=== PATIENT | female | born 1990 | race Caucasian/White ===

== ENCOUNTER 2024-08-02 22:48 | Inpatient (IN) | payer BC, SELFPAY ==
[2024-08-02 16:10] VITALS: BP 113/87
[2024-08-02 16:23] VITALS: BP 134/81
--- NOTE | 2024-08-02 16:26 | ED.GENMED ---
History of Present Illness
<Cee Billy GIS ENGINEER - Last Filed: 08/02/24 23:48>
General
Chief Complaint: Breathing Problem
Source: patient
Exam Limitations: none
Time Seen by Provider: 08/02/24 16:17
Nursing documentation reviewed up to this point in time: agreed with
History of Present Illness
History of Present Illness:
34 yo female here for episode of heart beating fast and SOB. She is 9 weeks via IVF, . Taking Estrogen and Progesterone. [facility]. States she woke this 8 a.m. with left calf 'soreness.' Still with some
soreness. 11:30 this a.m. had sudden onset 'my heart was racing' for about a minute, felt faint, blurry vision for 30 seconds in right eye, felt SOB, went back into the restaurant,sat and it took her 10 minutes to recover. Had no chest pain. Went on
to her next appointment.
She flew to [place] and back 07/24 and 07/28
Past History
<Cee Billy, GIS ENGINEER - Last Filed: 08/02/24 23:48>
Past History
ED Past Medical History: None
ED Past Surgical History: None
Social History
Tobacco: Non-smoker
Alcohol: None
Personal:
Living: with family
Employment: Employed
Review of Systems
<Cee Billy, GIS ENGINEER - Last Filed: 08/02/24 23:48>
Review of Systems
Allergies reviewed?: Yes
All Other Systems: ROS reviewed and negative except as documented in HPI and ROS
Constitutional: Denies fever
Respiratory: Reports trouble breathing (feels SOB with talking); Denies cough
Cardiac: Reports palpitations; Denies chest pain, diaphoresis or syncope
ABD/GI: Denies abdominal pain, nausea, vomiting or diarrhea
: Denies dysuria, frequency or difficulty voiding
Musculoskeletal: Reports no symptoms
Skin: Reports no symptoms
Neurological: Reports no symptoms
Phy Exam
<Cee Billy, GIS ENGINEER - Last Filed: 08/02/24 23:48>
Physical Exam
Physical Exam:
GENERAL: No acute distress. A&Ox3.
CONSTITUTIONAL: Afebrile.
EYES: clear, conjunctivae normal
ENMT: moist mucus membranes, Pharynx nl
RESPIRATORY: Regular respirations, nonlabored, lungs clear. Pulse ox 94-98% RA
CARDIOVASCULAR: Regular rate and rhythm, no murmurs, no rubs.
GI: Soft, nontender, normal BS
MUSCULOSKELETAL: Moves with ease. Well perfused.
SKIN: Warm, dry, pink
PSYCH: Normal mood and affect. Well kept, interactive and appropriate
NEUROLOGIC: Awake, alert and oriented. No focal neurological deficits
Sepsis
<Cee Billy, GIS ENGINEER - Last Filed: 08/02/24 23:48>
Sepsis Screening
Sepsis Assessment: Sepsis Ruled Out
Sepsis Screen
Sepsis Screen: Sepsis Ruled Out
Date: 08/02/24
Time: 23:48
Course
<Cee Billy, GIS ENGINEER - Last Filed: 08/02/24 23:48>
Orders/Labs/Results
Orders:
Orders
08/02/24 Dinner
Regular
At Your Request: Full Participation
08/02/24 16:26
US Periph Venous LOWER Ext LT Urgent
Comment:
Reason For Exam: soreness, SOB, 7 wks preg
08/02/24 16:37
Complete Blood Count/With Diff Urgent
Comprehensive Metabolic Panel Urgent
D-Dimer Urgent
PTT Urgent
Comment: ADD ON
08/02/24 18:21
CT Chest PE Study Urgent
Comment:
Reason For Exam: 9 wks preg, elevated dimer, SOB
08/02/24 20:01
Heparin 4,800 units IV NOW STA
Nursing to Place Non Medication Order As Directed
Physician Order: PTT 6 hours after initial start of Heparin infusion
Above order entered?: Yes
08/02/24 20:02
Add On- LAB Stat
Tests Added?: PTT
08/02/24 20:10
Heparin 4,800 units IV PRN PRN
Heparin 51364 Units/250 ml 25,000 units in 250 ml .ROUTE .STK-MED
08/02/24 20:11
Heparin 2,400 units IV PRN PRN
08/02/24 20:15
Heparin 82594 Units/250 ml 25,000 units in 250 ml IV PER PROTOCOL
Weight to be used for heparin protocol in kilograms (kg):: 59.9
Protocol:: DVT/PE
PTT Goal Range to be used:: PTT 73 to 111 seconds
Order type:: Initial
INITIAL Infusion Dose (UNITS/KG/hr) & then follow protocol:: 18 units/kg/hr
Infusion Dose in UNITS/hr & then follow protocol (UNITS/hr):: 1,100
INFUSION RATE in mL/hr & then follow protocol (mL/hr):: 11
For DVT/PE algorithm, re-bolus for low PTT?: Yes
PTT less than or equal to 64 seconds:: Re-bolus 80 units/kg (max 10,000units). Increase by 200 units/hr
(+ 2mL/hr)
PTT 64.1 to 72.9 seconds:: Re-bolus 40 units/kg (max 5,000 units). Increase by 100 units/hr
(+ 1mL/hr)
PTT 73 to 111 seconds:: Target Range. No change in rate.
PTT 111.1 to 130.9 seconds:: Decrease rate by 100 units/hr (- 1 mL/hr)
PTT 131 to 199.9 seconds:: HOLD for 1 hr. Then decrease by 200 units/hr (- 2mL/hr)
PTT greater than or equal to 200 seconds:: HOLD for 2 hrs & Notify Provider. Then decrease by 200 units/hr
(- 2mL/hr)
Lab follow-up:: Each change, PTT q6h until 2 consecutive are therapeutic. Then
PTT daily.
08/02/24 22:18
Admit/Transfer Patient As Directed
Co-Sign Provider:
Level of Care: Inpatient admission
Assign to:: IMU- Intermediate Care
Physician / Group: hospitalist
Diagnosis: pulmonary embolus
Reason for Hospitalization: Large saddle pulmonary embolus
Expected length of stay greater than two midnights?: Yes
ELOS- Estimated Length of Stay in days: 2
I certify the patient meets the requirements for IP care: Yes
08/02/24 22:19
Code Status As Directed
Resuscitation Status: Full Code
08/02/24 23:32
Acetaminophen [Tylenol] 650 mg PO Q4HPRN PRN
HYDROmorphone [Dilaudid] 0.5 mg IV Q4HPRN PRN
Ondansetron Injectable [Zofran] 4 mg IV Q6HPRN PRN
08/02/24 23:32
Admit Patient As Directed
Co-Sign Provider:
Level of Care: Inpatient admission
Assign to:: IMU- Intermediate Care
Physician / Group: hospitalist
Diagnosis: pulmonary embolism
Reason for Hospitalization: pulmonary embolism
Expected length of stay greater than two midnights?: Yes
ELOS- Estimated Length of Stay in days: 2
I certify the patient meets the requirements for IP care: Yes
Echo 2D MMode Color/Doppler Routine
Reason for Study: pulmonary embolism
Electrocardiogram (*1) Routine
Reason for Study: Other
Other Reason for Exam: pulmonary embolism
Software Packager Consult Routine
Consulting Provider: Mike Rasmussen
Was physician already notified: Yes
Reason for consult: saddle embolus
Heparin Protocol- PTT Orders As Directed
PTT per Heparin protocol: -Obtain CBC and baseline PTT - if not already collected.
-Obtain PTT 6 hours from start of infusion. Then, every 6 hours until 2 consecutive
PTT's are therapeutic. Then, PTT Daily.
-With each rate change, obtain PTT every 6 hours until 2 consecutive PTT's are
therapeutic. Then, PTT Daily.
Activity As Directed
Activity Level: With Assistance
Bladder Scan As Directed
Follow Bladder Retention/Intermittent Cath Algorithm?: Yes
Frequency: Per Retention Algorithm
Comment: as per intermittent urinary catheter algorithm
Bladder Scan As Directed
Follow Bladder Retention/Intermittent Cath Algorithm?: Yes
PRN if no void in __ hours: 6
Frequency: Per Retention Algorithm
If Bladder Scan Result >: 400
then:: Straight cath
Intake/ Output As Directed
Frequency: Per unit guidelines
Notify MD As Directed
Notify physician if: PTT is greater than or equal to 200.
Straight Cath As Directed
Frequency: Per Retention Algorithm
Additional Instructions: as per intermittent urinary catheter algorithm
Straight Cath As Directed
Frequency: Per Retention Algorithm
Additional Instructions: straight cath as needed per acute urinary retention algorithm for 24 hrs
Additional Instructions: for bladder scan greater than 400 mL
Vital Signs As Directed
Frequency: Per unit guidelines
PRN Pain Medication Management As Directed
May give lesser potent ordered pain med per pt: Yes
preference::
Protocol:: Medication orders for pain may be administered in a
manner that supports deferring to patient preference
when the pt is:
- Requesting an ordered lesser potent pain medication.
Least to most potent pain medications are defined
as: acetaminophen < NSAID < tramadol < opioids
(morphine, oxycodone, hydromorphone).
- Requesting a lesser dose of the same medication IF
ORDERED.
- Requesting a less intrusive route of administration
if both routes are prescribed by the provider (PO <
IV).
Pulse Ox/cont/shift [RESP] Routine
Quantity: 1
Special Instructions: check O2 Sat Q8 hours and at each change in oxygen liter flow and FiO2
08/03/24 02:20
PTT Urgent
08/03/24 06:00
Complete Blood Count/No Diff IN AM
Glycohemoglobin (HgbA1c) IN AM
Troponin I IN AM
08/03/24 08:00
Polyethylene Glycol Powder [Miralax] 17 grams PO DAILY
08/04/24 06:00
Complete Blood Count/No Diff Q2D
Comment: notify provider: Platelet count < 130,000 or decrease by 50% from baseline
08/06/24 06:00
Complete Blood Count/No Diff Q2D
Comment: notify provider: Platelet count < 130,000 or decrease by 50% from baseline
08/08/24 06:00
Complete Blood Count/No Diff Q2D
Comment: notify provider: Platelet count < 130,000 or decrease by 50% from baseline
08/10/24 06:00
Complete Blood Count/No Diff Q2D
Comment: notify provider: Platelet count < 130,000 or decrease by 50% from baseline
08/12/24 06:00
Complete Blood Count/No Diff Q2D
Comment: notify provider: Platelet count < 130,000 or decrease by 50% from baseline
08/14/24 06:00
Complete Blood Count/No Diff Q2D
Comment: notify provider: Platelet count < 130,000 or decrease by 50% from baseline
08/16/24 06:00
Complete Blood Count/No Diff Q2D
Comment: notify provider: Platelet count < 130,000 or decrease by 50% from baseline
08/18/24 06:00
Complete Blood Count/No Diff Q2D
Comment: notify provider: Platelet count < 130,000 or decrease by 50% from baseline
Abnormal Lab Results
08/02/24
16:37
Hct 36.6 L %
(37.0-47.0)
Absolute Neuts (auto) 6.7 H 10^3/uL
(1.4-6.5)
D-Dimer 5.03 H ug/mlFEU
(0.00-0.50)
Sodium 134 L mmol/L
(135-145)
08/02/24 16:37
08/02/24 16:37
Vital Signs
Initial and Last Documented VS:
Initial Vital Signs
Temp Pulse Resp BP Pulse Ox
98.3 F 102 21 113/87 94
08/02/24 16:10 08/02/24 16:10 08/02/24 16:10 08/02/24 16:10 08/02/24 16:10
Last Documented Vital Signs
Temp Pulse Resp BP Pulse Ox
98.3 F 89 16 117/77 99
08/02/24 16:10 08/02/24 23:00 08/02/24 23:00 08/02/24 23:00 08/02/24 23:00
<Amol Olivier, DO - Last Filed: 08/02/24 20:17>
Orders/Labs/Results
Orders:
Orders
08/02/24 Dinner
Regular
At Your Request: Full Participation
08/02/24 16:26
US Periph Venous LOWER Ext LT Urgent
Comment:
Reason For Exam: soreness, SOB, 7 wks preg
08/02/24 16:37
Complete Blood Count/With Diff Urgent
Comprehensive Metabolic Panel Urgent
D-Dimer Urgent
PTT Urgent
Comment: ADD ON
08/02/24 18:21
CT Chest PE Study Urgent
Comment:
Reason For Exam: 9 wks preg, elevated dimer, SOB
08/02/24 20:01
Heparin 4,800 units IV NOW STA
Nursing to Place Non Medication Order As Directed
Physician Order: PTT 6 hours after initial start of Heparin infusion
Above order entered?: Yes
08/02/24 20:02
Add On- LAB Stat
Tests Added?: PTT
08/02/24 20:10
Heparin 4,800 units IV PRN PRN
Heparin 51507 Units/250 ml 25,000 units in 250 ml .ROUTE .STK-MED
08/02/24 20:11
Heparin 2,400 units IV PRN PRN
08/02/24 20:15
Heparin 19330 Units/250 ml 25,000 units in 250 ml IV PER PROTOCOL
Weight to be used for heparin protocol in kilograms (kg):: 59.9
Protocol:: DVT/PE
PTT Goal Range to be used:: PTT 73 to 111 seconds
Order type:: Initial
INITIAL Infusion Dose (UNITS/KG/hr) & then follow protocol:: 18 units/kg/hr
Infusion Dose in UNITS/hr & then follow protocol (UNITS/hr):: 1,100
INFUSION RATE in mL/hr & then follow protocol (mL/hr):: 11
For DVT/PE algorithm, re-bolus for low PTT?: Yes
PTT less than or equal to 64 seconds:: Re-bolus 80 units/kg (max 10,000units). Increase by 200 units/hr
(+ 2mL/hr)
PTT 64.1 to 72.9 seconds:: Re-bolus 40 units/kg (max 5,000 units). Increase by 100 units/hr
(+ 1mL/hr)
PTT 73 to 111 seconds:: Target Range. No change in rate.
PTT 111.1 to 130.9 seconds:: Decrease rate by 100 units/hr (- 1 mL/hr)
PTT 131 to 199.9 seconds:: HOLD for 1 hr. Then decrease by 200 units/hr (- 2mL/hr)
PTT greater than or equal to 200 seconds:: HOLD for 2 hrs & Notify Provider. Then decrease by 200 units/hr
(- 2mL/hr)
Lab follow-up:: Each change, PTT q6h until 2 consecutive are therapeutic. Then
PTT daily.
08/02/24 22:18
Admit/Transfer Patient As Directed
Co-Sign Provider:
Level of Care: Inpatient admission
Assign to:: IMU- Intermediate Care
Physician / Group: hospitalist
Diagnosis: pulmonary embolus
Reason for Hospitalization: Large saddle pulmonary embolus
Expected length of stay greater than two midnights?: Yes
ELOS- Estimated Length of Stay in days: 2
I certify the patient meets the requirements for IP care: Yes
08/02/24 22:19
Code Status As Directed
Resuscitation Status: Full Code
08/02/24 23:32
Acetaminophen [Tylenol] 650 mg PO Q4HPRN PRN
HYDROmorphone [Dilaudid] 0.5 mg IV Q4HPRN PRN
Ondansetron Injectable [Zofran] 4 mg IV Q6HPRN PRN
08/02/24 23:32
Admit Patient As Directed
Co-Sign Provider:
Level of Care: Inpatient admission
Assign to:: IMU- Intermediate Care
Physician / Group: hospitalist
Diagnosis: pulmonary embolism
Reason for Hospitalization: pulmonary embolism
Expected length of stay greater than two midnights?: Yes
ELOS- Estimated Length of Stay in days: 2
I certify the patient meets the requirements for IP care: Yes
Echo 2D MMode Color/Doppler Routine
Reason for Study: pulmonary embolism
Electrocardiogram (*1) Routine
Reason for Study: Other
Other Reason for Exam: pulmonary embolism
Software Packager Consult Routine
Consulting Provider: Mike Rasmussen
Was physician already notified: Yes
Reason for consult: saddle embolus
Heparin Protocol- PTT Orders As Directed
PTT per Heparin protocol: -Obtain CBC and baseline PTT - if not already collected.
-Obtain PTT 6 hours from start of infusion. Then, every 6 hours until 2 consecutive
PTT's are therapeutic. Then, PTT Daily.
-With each rate change, obtain PTT every 6 hours until 2 consecutive PTT's are
therapeutic. Then, PTT Daily.
Activity As Directed
Activity Level: With Assistance
Bladder Scan As Directed
Follow Bladder Retention/Intermittent Cath Algorithm?: Yes
Frequency: Per Retention Algorithm
Comment: as per intermittent urinary catheter algorithm
Bladder Scan As Directed
Follow Bladder Retention/Intermittent Cath Algorithm?: Yes
PRN if no void in __ hours: 6
Frequency: Per Retention Algorithm
If Bladder Scan Result >: 400
then:: Straight cath
Intake/ Output As Directed
Frequency: Per unit guidelines
Notify MD As Directed
Notify physician if: PTT is greater than or equal to 200.
Straight Cath As Directed
Frequency: Per Retention Algorithm
Additional Instructions: as per intermittent urinary catheter algorithm
Straight Cath As Directed
Frequency: Per Retention Algorithm
Additional Instructions: straight cath as needed per acute urinary retention algorithm for 24 hrs
Additional Instructions: for bladder scan greater than 400 mL
Vital Signs As Directed
Frequency: Per unit guidelines
PRN Pain Medication Management As Directed
May give lesser potent ordered pain med per pt: Yes
preference::
Protocol:: Medication orders for pain may be administered in a
manner that supports deferring to patient preference
when the pt is:
- Requesting an ordered lesser potent pain medication.
Least to most potent pain medications are defined
as: acetaminophen < NSAID < tramadol < opioids
(morphine, oxycodone, hydromorphone).
- Requesting a lesser dose of the same medication IF
ORDERED.
- Requesting a less intrusive route of administration
if both routes are prescribed by the provider (PO <
IV).
Pulse Ox/cont/shift [RESP] Routine
Quantity: 1
Special Instructions: check O2 Sat Q8 hours and at each change in oxygen liter flow and FiO2
08/03/24 02:20
PTT Urgent
08/03/24 06:00
Complete Blood Count/No Diff IN AM
Glycohemoglobin (HgbA1c) IN AM
Troponin I IN AM
08/03/24 08:00
Polyethylene Glycol Powder [Miralax] 17 grams PO DAILY
08/04/24 06:00
Complete Blood Count/No Diff Q2D
Comment: notify provider: Platelet count < 130,000 or decrease by 50% from baseline
08/06/24 06:00
Complete Blood Count/No Diff Q2D
Comment: notify provider: Platelet count < 130,000 or decrease by 50% from baseline
08/08/24 06:00
Complete Blood Count/No Diff Q2D
Comment: notify provider: Platelet count < 130,000 or decrease by 50% from baseline
08/10/24 06:00
Complete Blood Count/No Diff Q2D
Comment: notify provider: Platelet count < 130,000 or decrease by 50% from baseline
08/12/24 06:00
Complete Blood Count/No Diff Q2D
Comment: notify provider: Platelet count < 130,000 or decrease by 50% from baseline
08/14/24 06:00
Complete Blood Count/No Diff Q2D
Comment: notify provider: Platelet count < 130,000 or decrease by 50% from baseline
08/16/24 06:00
Complete Blood Count/No Diff Q2D
Comment: notify provider: Platelet count < 130,000 or decrease by 50% from baseline
08/18/24 06:00
Complete Blood Count/No Diff Q2D
Comment: notify provider: Platelet count < 130,000 or decrease by 50% from baseline
Abnormal Lab Results
08/02/24
16:37
Hct 36.6 L %
(37.0-47.0)
Absolute Neuts (auto) 6.7 H 10^3/uL
(1.4-6.5)
D-Dimer 5.03 H ug/mlFEU
(0.00-0.50)
Sodium 134 L mmol/L
(135-145)
08/02/24 16:37
08/02/24 16:37
Vital Signs
Initial and Last Documented VS:
Initial Vital Signs
Temp Pulse Resp BP Pulse Ox
98.3 F 102 21 113/87 94
08/02/24 16:10 08/02/24 16:10 08/02/24 16:10 08/02/24 16:10 08/02/24 16:10
Last Documented Vital Signs
Temp Pulse Resp BP Pulse Ox
98.3 F 89 16 117/77 99
08/02/24 16:10 08/02/24 23:00 08/02/24 23:00 08/02/24 23:00 08/02/24 23:00
<Cee Billy GIS ENGINEER - Last Filed: 08/02/24 23:48>
MDM/Problems Addressed
Differential Diagnosis Includes:
PE
MDM/Problems Addressed:
34 yo female here for episode of heart beating fast and SOB. She is 9 weeks via IVF, . Taking Estrogen and Progesterone. Followed by Fawad Gonzalez [employer] OPER[employer]. States she woke this 8 a.m. with left calf 'soreness.' Still with some
soreness. 11:30 this a.m. had sudden onset 'my heart was racing' for about a minute, felt faint, blurry vision for 30 seconds in right eye, felt SOB, went back into the restaurant,sat and it took her 10 minutes to recover. Had no chest pain. Went on
to her next appointment.
She flew to [place] and back 07/24 and 07/28
CBC normal
CMP CMP normal
D dimer 5.03
US LLE neg for DVT
Results discussed with patient and at bedside. Chest CT PE study ordered
Discussed risk vs benefit with pt and , Dr. Olivier, all in agreement to do CT scan at 9 weeks .
UpToDate: Dose threshold�and potential consequences�� Ionizing radiation studies typically expose the fetus to <50 mGy (0.05 Gy, 5 rads) (table
[email or web address]?imageKey=[email or web address]&topicKey=OBGYN%[email or web address]&search=Chest%20ct%20in%20early%20pregnancy&rank=2%[email or web address]&source=see_link), and there is�no�evidence of an increased risk of anomalies, intellectual
disability, growth restriction, or ?r?g???c? loss from ionizing radiation at this dose level; there may be a small increased risk of childhood cancer.
7:50 p.m.
Saddle embolus, mild R heart strain
Pt states she is feeling much better since arrival
[facility]
PERT Alert called. Dr. Olivier spoke with OB and Pulmonology Dr. Hua
Pt on Estrogen and Progesterone with multiple PE's, saddle embolus, OB Dr. Lees who has nothing to do at this point. We will consult with pt Fertility Dr. Carmen re continuing hormones (or not).
Plan: Heparin
8:15 p.m.
Hospitalist notified of admission.
<Cee Billy NP - Last Filed: 08/02/24 23:48>
*Critical Care Note
Total Time (30-74mins, 75-104mins- exclusive of procedures): Not Applicable
ED Attending Note
<Cee Billy, GIS ENGINEER - Last Filed: 08/02/24 23:48>
-
Portions of this chart may have been created with voice recognition software.� Occasional wrong word or��sound alike� substitutions may have occurred due to the inherent limitations of voice recognition software.
<Amol Olivier DO - Last Filed: 08/02/24 20:17>
ED Attending Note
I performed the substantive portion of visit, reviewed & personally made and approve the management plan that is documented in note by myself or YAZAN.: Yes
ED Attending Note:
I agree with Lucretia's note
Patient presents with sudden onset of shortness of breath, rapid heart rate and near syncopal feeling. Feeling significantly better now.
General: Awake, Alert, Oriented X3. No acute distress.
Vitals: unremarkable
Head: Atraumatic
Eyes: Pupils equal, EOMI
Throat: Airway intact, no exudates
Neck: Trachea midline
Lungs: Clear and equal b/l
Heart: Regular rate, no murmurs
Abd: Soft, Nontender, No pulsatile mass
Neuro: Nonfocal
Skin: Warm, dry, no rash
Extremities: pulses equal b/l, no edema
Patient presents with chest pain, near syncope and shortness of breath. PE study shows moderate clot burden with a thin saddle embolus component. Case discussed with Dr. Wilkins, who feels patient is not a candidate for intervention. Agrees with
heparin. I did discuss the patient's presentation with Dr. Lees who is on-call for [employer] OPER[employer]. She does not have much to add at this point as it is a nonviable . Will asked the patient to contact her fertility doctor so we can discuss
whether or not to continue her oral hormone supplements.
Critical care time 35 minutes
Critical care statement: A total of 35 minutes of critical care time was provided for this patient. This includes management of unstable vital signs, evaluation of the patient at bedside, reviewing the patient's pertinent medical records, discussion
with consultants, review of old EKGs and review of pertinent medical records. This time with separate from time utilized to perform the aforementioned documented procedures
Discharge Plan
Departure
Patient Disposition: Admit
Date of Disposition: 08/02/24
Time of Disposition: 20:18
Admit to: IMU
Presentation/result/management discussed w/ accepting MD/DO: Hospitalist
Condition: Fair
Discharge Problem:
Multiple pulmonary emboli, Acute saddle pulmonary embolism
Interventions
Interventions:
*Risk Screen - Suicide Last Done: 08/02/24 16:10
*General Assessment Last Done: 08/02/24 16:34
*Neglect/Abuse Screening Last Done: 08/02/24 16:10
*ED COVID-19 Vaccine History Last Done: 08/02/24 16:34
ED- Cardiac Assessment Last Done: 08/02/24 16:34
ED- Pulmonary Assessment Last Done: 08/02/24 16:34
[2024-08-02 16:49] LABS: % Basophils 0.3 % (0-2); % Eosinophils 2.1 % (0-6); % Immature Granulocytes 0.4 % (0-0.5); % Lymphocytes 24.4 % (20.5-51.1); % Neutrophils 66.8 % (42.2-75.2); Absolute Eosinophils 0.2 10^3/uL (0-0.7); Absolute Lymphocytes 2.4 10^3/uL (1.2-3.4); Absolute Monocytes 0.6 10^3/uL (0.1-0.6); Absolute Neutrophils 6.7 10^3/uL (1.4-6.5); Hematocrit 36.6 % (37.0-47.0); Mean Corp Hgb Conc. 35.5 g/dL (33.0-37.0); Mean Corpuscular Volume 84.3 fL (81.0-99.0); Nucleated Red Blood Cells % 0 %; Platelet Count 189 10^3/uL (130-400); Red Blood Cell Count 4.34 10^6/uL (4.20-5.40); Red Cell Dist. Width 12.7 % (11.5-14.5)
[2024-08-02 16:59] LABS: ALT (SGPT) 21 U/L (0-35); AST (SGOT) 21 U/L (14-36); Albumin 4.5 g/dl (3.5-5.0); Alkaline Phosphatase 57 U/L (38-126); Blood Urea Nitrogen 15 mg/dl (7-17); Calcium 9.6 mg/dl (8.4-10.2); Carbon Dioxide 23 mmol/L (22-30); Chloride 100 mmol/L (98-107); Glucose 88 mg/dl (70-99); Potassium 3.8 mmol/L (3.5-5.1); Sodium 134 mmol/L (135-145); Total Bilirubin 0.5 mg/dl (0.2-1.3); Total Protein 7.1 g/dl (6.3-8.2); eGFR > 60.00
[2024-08-02 17:00] VITALS: BP 120/81
[2024-08-02 17:09] LABS: D-Dimer 5.03 ug/mlFEU (0.00-0.50)
[2024-08-02 18:00] VITALS: BP 119/78
[2024-08-02 19:46] VITALS: BP 116/90
[2024-08-02 20:16] LABS: APTT 23.4 Sec (23.4-35.0)
[2024-08-02] MEDS: HEPARIN 4800 UNITS IV (20:18)
[2024-08-02] MEDS: HEPARIN 25000 UNITS/250 ML IV (20:19)
--- NOTE | 2024-08-02 22:10 | HPS.HSE ---
Family Physician
-
Family Physician: Dereje Astudillo
Chief Complaint
-
Shortness of breath
History of Present Illness
This is a 34-year-old female who is 9 weeks on IVF with estrogen and progesterone presenting to the emergency department with acute episode of severe dyspnea on exertion.
Patient has been on hormone therapy for . She is now 9 weeks . She reported that she traveled to [place] on the and came back on 28 July. This was about a 4 to 5-hour flight on each leg. She had otherwise been in usual state
of health and arose this morning with some left calf soreness. Then this afternoon she reported having palpitations. She reported some mild blurriness in her vision in the right eye. 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
few feet resulted in severe dyspnea on exertion. 8 improved at rest but when she tried to move again she felt seriously dyspneic. She contacted our garage door technician who recommended that she go to the emergency department for evaluation. PMD also
recommended same so she came into the ED.
Patient denies chest pain. She denies any recent cough fevers or chills. She denies any recent COVID infection. She denies any family history of clotting disorders. She denies any smoking.
In the emergency department she was afebrile blood pressure was 116/90 with a pulse of 78 she was satting 98% on room air. D-dimer was elevated. Electrolytes BUN/creatinine were all normal. CBC was normal. She had a CT PE study which showed
bilateral emboli with saddle embolus, moderate clot burden, signs of mild right heart strain. She had a DVT study of the left lower extremity which was negative. Patient started on heparin drip.
Medical History
Past Medical History
Past Medical History: Reports None and Other
Additional Past Medical History:
G1, P0
Past Surgical History: Reports None
Social History
Tobacco: Non-smoker
Alcohol: None
Drug: None
Personal:
Living: With Family
Employment: Employed
Family History
Family History: Not pertinent
Allergies / Home Medications
Allergies reflects when Allergies were last updated in [facility].
Home Medications with original date entered in [facility]
Allergy/Medication List:
Allergies
Allergy/AdvReac Type Severity Reaction Status Date / Time
Seasonal-spring Allergy Runny nose Uncoded 05/23/10 08:34
Review of Systems
-
History Source: Patient
Constitutional: Reports No Symptoms
EENT: Reports No Symptoms
Respiratory: Reports Trouble Breathing
Cardiac: Reports No Symptoms
Abdomen/GI: Reports No Symptoms
: Reports No Symptoms
Musculoskeletal: Reports No Symptoms
Skin: Reports No Symptoms
Neurological: Reports No Symptoms
Endocrine: Reports No Symptoms
Hematologic/Lymphatic: Reports No Symptoms
Psych: Reports No Symptoms
Physical Exam
Vital Signs
Vital Signs
Temp Pulse Resp BP Pulse Ox
98.3 F 78 17 116/90 79
08/02/24 16:10 08/02/24 18:30 08/02/24 18:30 08/02/24 19:46 08/02/24 19:46
Physical Exam
General: Well Developed, Well Nourished, Comfortable and Conversant; No Respiratory Distress
HEENT: NormoCephalic, Anicteric, Moist mucous membranes and Atraumatic
Respiratory: Clear
Cardiac: S1/S2 and Regular Rhythm
Breast: Deferred by me
GI: Soft, Non Tender, Non Distended and Normal Bowel Sounds
Rectal: Deferred by Provider
Genito-urinary: Deferred by me
Musculoskeletal: No Clubbing, No Cyanosis and No Edema
Skin: Warm
Neuro: AO x 3 and Nonfocal/grossly intact
Hematologic/Lymphatic: No Lymphadenopathy
Psych: Calm
Laboratory Results
-
08/02/24 16:37
08/02/24 16:37
Laboratory Results
APTT Cancelled 08/02/24 20:01
Total Bilirubin 0.5 mg/dl (0.2-1.3) 08/02/24 16:37
AST 21 U/L (14-36) 08/02/24 16:37
ALT 21 U/L (0-35) 08/02/24 16:37
Alkaline Phosphatase 57 U/L (38-126) 08/02/24 16:37
Data Reviewed
-
CT Scan: Report Reviewed by me
Ultrasound: Report Reviewed by me
Lab Data: Labs Reviewed by me
Old Records: Reviewed
Impression/Plan
-
IMPRESSION:
Patient on estrogen/progesterone therapy for IVF was now 9 weeks , status post recent travel. Presenting to the emergency department with dyspnea on exertion and found to have significant pulmonary embolus with a saddle emboli. She is
hemodynamically stable and not on any oxygen. There is small right heart strain on the CT scan. Risk factors are likely ED estrogen therapy. Recent flight.
PLAN:
1. Pulmonary embolus- Saddle embolus with mild R heart strain.
- admit to telemetry
- check ecg and troponin
- echo in am
- for now heparin gtt, no indication for acute thrombolysis or thrombectomy
- ultimately oral AC to be determined. Data are insufficient to evaluate the safety of direct-acting oral anticoagulants during and use in patients is not recommended.
- pain control
- patient told to stop the estrogen/progesterone by her IVF clinic.
Code Status - Full Code
[2024-08-02 22:48] VITALS: BMI 18.9
[2024-08-02 23:00] VITALS: BP 117/77
[2024-08-03] VITALS (42 sets, daily range): BP systolic 95–119; BP diastolic 55–87; BMI 19.1
[2024-08-03 02:44] LABS: APTT 45.5 Sec (23.4-35.0)
[2024-08-03] MEDS: HEPARIN 4800 UNITS IV (02:55)
[2024-08-03 06:07] LABS: Hematocrit 35.6 % (37.0-47.0); Hemoglobin 12.3 g/dL (12.0-16.0); Mean Corp Hgb Conc. 34.6 g/dL (33.0-37.0); Mean Corpuscular Hgb 29.3 pg (27.0-31.0); Mean Corpuscular Volume 84.8 fL (81.0-99.0); Mean Platelet Volume 9.1 fL (7.4-10.4); Platelet Count 180 10^3/uL (130-400); Red Cell Dist. Width 12.8 % (11.5-14.5); White Blood Cell Count 8.7 10^3/uL (4.8-10.8)
--- NOTE | 2024-08-03 06:08 | PTCARENOTE ---
Pt AAOx3, Pt told of need for best at this point, verbally communicated understanding. Pt arrived on heparin gtt 13ml/hr, appears to be tolerating well. Lungs clear, Pt on ra, respiration even unlabored. Pt has no complaints at this time. call bel
within reach.
[2024-08-03 07:10] LABS: Troponin I 0.171 ng/ml
[2024-08-03 08:24] LABS: Glycohemoglobin (HgbA1c) 4.6 % (4.0-5.6)
[2024-08-03 09:00] LABS: APTT 72.8 Sec (23.4-35.0)
[2024-08-03] MEDS: HEPARIN 2400 UNITS IV ×2 (09:23→15:27)
--- NOTE | 2024-08-03 10:15 | W.PN.HOSP.TC ---
Today's Communication/Plan
-
See plan
Assessment / Plan
Assessment / Plan
Impression.
34 years old female 9 weeks gestation status post IVF on progesterone and estrogen, status post prolonged airway travel presented with acute onset of exertional dyspnea and palpitations.
Acute pulmonary embolism.
CT scan of the chest with multiple segmental and subsegmental vessel filling defects consistent with pulmonary emboli throughout all lobes of the lungs. There is a saddle embolus at the bifurcation of the pulmonary trunk.
9 weeks gestation
Status post IVF on progesterone/estrogen therapy.
Status post prolonged care with travel
Plan
Has been hemodynamically stable since presentation.
Currently no clinical indication for thrombolytic therapy.
Initiated on IV heparin infusion.
Complete workup with bilateral lower extremity Doppler.
Echocardiogram.
Plan is to transition to low molecular weight heparin (factor Xa inhibitor with strong complication for patients).
Maintain bedrest until complete workup and consistently therapeutic level of PTT
OB/ consult
Beta-hCG.
Anticipated Discharge: 24 - 48 hours
Subjective/Interval History
-
Date of Service: August 03, 2024
Objective Data
-
Labs:
Laboratory Results
08/03/24 08/03/24 08/03/24
02:13 05:56 08:39
WBC 8.7
Hgb 12.3
Hct 35.6 L
Plt Count 180
APTT 45.5 H 72.8 H
08/03/24
15:00
WBC
Hgb
Hct
Plt Count
APTT Pending
Vital Signs:
Vital Signs
Temp Pulse Resp BP Pulse Ox
98.5 F 66 19 112/75 98
08/03/24 07:25 08/03/24 08:45 08/03/24 08:45 08/03/24 08:45 08/03/24 10:07
I&O
08/02/24 08/03/24 08/04/24
06:59 06:59 06:59
Intake Total 360 / 360
Balance 360 / 360
Physical Exam
-
General: Well Developed and No Apparent Distress
HEENT: Normocephalic, Atraumatic and Moist Mucous Membranes
Respiratory: Clear to Auscultation
Cardiac: Regular Rhythm and S1/S2; Negative Murmur, Rub or Gallop
GI: Soft, Nontender, Nondistended and Normal Bowel Sounds; Negative Organomegaly
Rectal: Deferred by Provider
Musculoskeletal: No Clubbing, No Cyanosis and No Edema
Skin: Negative Rash
Neuro: Nonfocal/Grossly Intact
--- NOTE | 2024-08-03 12:04 | CON.PUL ---
Consultation
Consultation Request
Date/Time Consultation Requested: 08/03/2024
Date/Time Consultation Performed: 08/03/2024
Requesting Provider: Dr. Marquez
Performing Provider: Dr. Mike Hua
Reason for Consultation: Acute pulmonary embolus
Medical History
-
History of Present Illness:
34-year-old woman with no significant past medical history came to the hospital on 08/02/2024 complaining of shortness of breath and lightheadedness. Patient is 9 weeks on IVF, on estrogens and progesterone. Usually follows at
[facility] for this.
Patient reports traveling to [place] on the and came back on the . 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
Initially she is very healthy and has no pulmonary problems. Never had any pulmonary embolism or DVT in the past
The morning of admission reported some left calf soreness. In the afternoon reported some palpitations. Then developed some mild blurry vision. Developed acute shortness of breath while at work standing from the sitting to the standing position.
Shortness of breath worsened almost immediately. She was instructed by her doctor to come to the emergency room
CT angiogram demonstrated bilateral pulmonary embolism with saddle component.
-
In the emergency room initially short of breath. She was not tachycardic or hypoxemic. Hemodynamically stable
PERT alert was called, I discussed the case with the emergency room. No thrombolytics indicated overnight.
This morning patient appears comfortable, able to speak in full sentence. Denies any chest pain, lightheadedness or distress.
Denies abdominal pain or vaginal bleed.
Past Medical History
Past Medical History: None
Social History
Tobacco: Non-smoker
Alcohol: None
Drug: None
Personal:
Employment: Employed (Drug business services sales representative)
Family History
Family History: Reviewed & Not Pertinent and Other (Reports that her cousin had a DVT.)
Allergies / Home Medications
Allergies
Allergy/AdvReac Type Severity Reaction Status Date / Time
Seasonal-spring Allergy Runny nose Uncoded 05/23/10 08:34
Review of Systems
-
History Source: Patient
All other systems: Negative unless noted
Vitals / Labs / Diagnostic Testing
Vital Signs
Temp Pulse Resp BP Pulse Ox
98.5 F 66 19 112/75 98
08/03/24 07:25 08/03/24 08:45 08/03/24 08:45 08/03/24 08:45 08/03/24 10:07
Lab Data
08/03/24 05:56
08/02/24 16:37
Laboratory Results
08/02/24 08/02/24 08/03/24
16:37 20:01 02:13
APTT 23.4 Cancelled 45.5 H
08/03/24
08:39
APTT 72.8 H
Diagnostic Testing:
Physical Exam
-
HEENT: Normocephalic
Cardiovascular: S1/S2
Respiratory: Non-Labored Respirations
GI: Soft, Non Distended and Non Tender
Neurology: Awake, Alert, AO x 3 and No Motor Deficits
Skin: Warm
General: Comfortable
Assessment
-
Acute pulmonary embolism likely provoked from hormonal therapy/long distance travel/possibly
CT angiogram reviewed Are multiple segmental and subsegmental vessels filling defects consistent with pulmonary emboli throughout all lobes of the lungs. There is a saddle embolus at the bifurcation of the pulmonary trunk. This measures 6 mm in
thickness. There is moderate clot burden. The artery/LV ratio is 1.3. No contrast has refluxed into the IVC and liver.
Mildly increased troponin
9-week gestation with IVF-on hormonal therapy
no family history or personal prior history of DVT
Assessment and plan:
Patient remains hemodynamically stable, not tachycardic or hypotensive.
Not on oxygen therapy
Left lower extremity Doppler without DVT.
-
Continue heparin drip follow PTT closely.
Eventually will transition to Lovenox, will wait for OB evaluation. Patient will be discharged on Lovenox length of anticoagulation will be deferred to her OB doctor.
In general should continue through .
OB has been consulted. Obstetric ultrasound has been ordered. Currently benign abdominal exam, denies vaginal bleeding.
Safety of oral anticoagulants not well establish in . In general should be avoided.
-
Monitor for bleeding.
Obtain right lower extremity Doppler
Obtain echocardiogram-pending
Continue hemodynamic monitoring
-
If there is no clot on the right lower extremity okay to increase out of bed and light ambulation.
-
Will follow briefly.
--- NOTE | 2024-08-03 12:59 | PTCARENOTE ---
Received pt @ change of shift. Assessment per charting- see flow sheet. Denies SOB/ARMSTRONG; SpO2 98% on RA. Remains on heparin gtt- lab work drawn and gtt titrated per protocol orders- see flow sheet. Mx US completed @ bedside this AM; RLE US, OB US,
and ECHO; awaiting results. Pt. remains on bedrest. Instructed on how to report care concerns and call jimenez w in reach.
[2024-08-03] MEDS: HEPARIN 25000 UNITS/250 ML IV (15:01)
[2024-08-03 15:19] LABS: APTT 72.3 Sec (23.4-35.0)
[2024-08-03 15:22] LABS: HCG, Serum Qualitative Screen Positive
--- NOTE | 2024-08-03 15:39 | CM ---
Met with pt and her at bedside
Pt reports she lives with her in a 2 story home; no steps to enter, 12 steps to 2nd fl
Independent at baseline, employed FT, drives
DME - none
HH - no past hx
Has ride at discharge
PCP - Dereje Astudillo
Pharm - [facility]
Plan - anticipate home no needs
--- NOTE | 2024-08-03 18:44 | W.PN.UPDATE ---
Update Note
Progress Note Update
Patient's obstetrical consult done by Dr Tobi Reis, MFM specialist. U/S was also performed which demonstrates viable intrauerine at 10+ weeks, consistent with patient's dating. I went to ICU to confirm patient had no further concerns,
patient expressed an interest in speaking with me.
Reviewed Dr Reis's consult. Pt has no bleeding or abdominal pain. Advised patient that she might want to consider an OB practice closer to her [place] home as [place] is going to be a problem to get to in an emergency, as she has now determined.
Patient considering this.
Advised patient that we would return for any OB problem while she is hospitalized, for example if she is having abdominal pain or vaginal bleeding. Otherwise, patient to follow up with her OB provider upon discharge.
Time spent with patient was 20 minutes.
--- NOTE | 2024-08-03 19:45 | PTCARENOTE ---
Patient received lying in bed, awake, alert and oriented. She is without apparent signs of distress or discomfort. She denies CP, SOB, palpitations. Pulses palpable, no edema. S1S2 regular, SR on CM with 1st degree AVB. BBS clear. Heparin gtt
infusing at 1500Units/hr. Tolerating po intake. No N/V.
[2024-08-03 21:40] LABS: APTT 90.2 Sec (23.4-35.0)
--- NOTE | 2024-08-03 22:20 | PTCARENOTE ---
PTT therapeutic at 90.2. No change in Heparin gtt rate, kept at 1500Units/hr. PTT for 329
--- NOTE | 2024-08-03 23:25 | PTCARENOTE ---
Report called verbally to Leti NIELSEN in IMU. Questions answered. Patient belongings gathered including purse, bag with clothing, phone and sent with patient. Patient transferred via bed accompanied by RN and PCT.
[2024-08-04] VITALS (12 sets, daily range): BP systolic 92–119; BP diastolic 56–87
--- NOTE | 2024-08-04 00:05 | PTCARENOTE ---
Received pt from ICU as transfer. AAOx3. Lungs CTA. No c/o SOB. RR 13 at this time. Heparin gtt running at 1500 u/hr. Next PTT to be drawn at 03:30. Oriented pt to room. Resting in bed with call jimenez in reach.
[2024-08-04 03:38] LABS: Hematocrit 35.2 % (37.0-47.0); Hemoglobin 12.3 g/dL (12.0-16.0); Mean Corp Hgb Conc. 34.9 g/dL (33.0-37.0); Mean Corpuscular Hgb 29.5 pg (27.0-31.0); Mean Corpuscular Volume 84.4 fL (81.0-99.0); Mean Platelet Volume 9.1 fL (7.4-10.4); Platelet Count 161 10^3/uL (130-400); Red Blood Cell Count 4.17 10^6/uL (4.20-5.40); Red Cell Dist. Width 12.7 % (11.5-14.5)
[2024-08-04 03:57] LABS: APTT 78.3 Sec (23.4-35.0)
--- NOTE | 2024-08-04 06:38 | PTCARENOTE ---
HR on monitor in the 40s/50s. Pt awake, offers no complaints. Asymptomatic.
[2024-08-04] MEDS: HEPARIN 25000 UNITS/250 ML IV (07:20)
--- NOTE | 2024-08-04 08:11 | W.PN.PUL3 ---
Today's Communication / Plan
-
Continue anticoagulation, transition to Lovenox
Would prefer to continue monitoring on telemetry for the next 24 to 48 hours
Ambulate with assistance
Reviewed limitations in the next 2 weeks
Recommend pulmonary follow-up in 3 months
We will sign off. Please call with questions
Assessment
-
Acute pulmonary embolism likely provoked from hormonal therapy/long distance travel/possibly
CT angiogram reviewed Are multiple segmental and subsegmental vessels filling defects consistent with pulmonary emboli throughout all lobes of the lungs. There is a saddle embolus at the bifurcation of the pulmonary trunk. This measures 6 mm in
thickness. There is moderate clot burden. The artery/LV ratio is 1.3. No contrast has refluxed into the IVC and liver.
Mildly increased troponin
9-week gestation with IVF-on hormonal therapy
no family history or personal prior history of DVT
Assessment and plan:
At this time, patient appears to be comfortable without complaints
Doppler study negative for right DVT, negative for left DVT
Patient remains hemodynamically stable, not tachycardic or hypotensive.
Not on oxygen therapy
Bradycardia noted, patient states this is likely chronic. Denies any symptoms, heart rate currently 45
Moving forward
Continue heparin drip,
okay to transition to Lovenox 1 mg/kg twice daily, as per OB, correspondence reviewed. This will need to continue through
This would be ideal to continue, Lovenox injection teaching, will be deferred to primary service
-
Monitor for bleeding.
Reviewed at length limitations over the next 2 weeks
Avoid heavy lifting, avoid intense exercise, avoid frequent bending
After 2 weeks, can slowly get back into routine
Reviewed what symptoms to watch out for
Echocardiogram with normal biventricular function, PA pressure 32
Will eventually require pulmonary follow-up, typically 3 months
Follow-up information left in chart
Would prefer patient continue with anticoagulation for another 24 to 48 hours prior to discharge given saddle embolus
Ambulate with assistance for now
Reviewed with patient at length pathophysiology of thromboembolic disease
She may benefit from eventual hematology evaluation as outpatient
Reviewed with patient, primary service
We will sign off. Please call with questions
Subjective Data
-
Date of Service:
Date of Service: August 04, 2024
Subjective:
Patient feels well. She denies shortness of breath, chest pain, pleurisy, palpitations, lightheadedness, dizziness. She is eating breakfast. She appears to be in good spirits. Heart rate intermittently 40s to 50s without symptoms
Objective Data
Data Reviewed
Vital Signs / I&O / Oxygen:
Vital Signs
Temp Pulse Resp BP Pulse Ox
98.4 F 46 15 102/62 98
08/04/24 07:33 08/04/24 06:00 08/04/24 06:00 08/04/24 06:00 08/04/24 06:00
Intake and Output
08/03/24 08/04/24 08/05/24
06:59 06:59 06:59
Intake Total 1200 / 1200
Output Total 1000 / 1000
Balance 200 / 200
SaO2 98
Physical Exam
General: Comfortable
HEENT: Normocephalic and Anicteric
Cardiovascular: S1-S2, Regular Rhythm, Murmur (n), Rub (n), Peripheral Edema (n) and Calf Tenderness (n)
Respiratory: Wheeze (n), Crackles (n), Rhonchi (n) and Non-Labored Respirations
GI: Soft, Non Distended and Non Tender
Neurology: Awake and Alert
Skin: Cyanosis (n), Jaundice (n) and Rash (n)
Labs/Micro/Reports
Lab Data
08/04/24 03:20
08/02/24 16:37
Laboratory Results
08/03/24 08/03/24 08/03/24
08:39 14:54 21:13
APTT 72.8 H 72.3 H 90.2 H
08/04/24
03:20
APTT 78.3 H
[2024-08-04] MEDS: LOVENOX 60 MG SC ×2 (13:26→22:10)
[2024-08-04] MEDS: LOVENOX SC (13:28)
--- NOTE | 2024-08-04 14:04 | W.PN.HOSP.TC ---
Today's Communication/Plan
-
Transition to Lovenox.
Lovenox teaching
Increase activity
Assessment / Plan
Assessment / Plan
Impression.
34 years old female 9 weeks gestation status post IVF on progesterone and estrogen, status post prolonged airway travel presented with acute onset of exertional dyspnea and palpitations.
Acute pulmonary embolism.
CT scan of the chest with multiple segmental and subsegmental vessel filling defects consistent with pulmonary emboli throughout all lobes of the lungs. There is a saddle embolus at the bifurcation of the pulmonary trunk.
9 weeks gestation
Status post IVF on progesterone/estrogen therapy.
Status post prolonged care with travel
Plan
Has been hemodynamically stable since presentation.
Has been stable respiratory status since admission with no requirement for supplemental oxygen
Echocardiogram with preserved biventricular function with no evidence of pulmonary hypertension or RV strain
Bilateral lower extremity Doppler negative
Currently no clinical indication for thrombolytic therapy.
Initiated on IV heparin infusion.
Transition to weight-based Lovenox on 08/04. Oral anticoagulants including Coumadin and NOACs contraindicated in .
Patient will remains on anticoagulation prior to with plan to follow-up with pulmonology and USER EXPERIENCE MANAGER as outpatient
Increase activity
Lovenox teaching
Discussed with pulmonary and USER EXPERIENCE MANAGER.
Anticipated Discharge: 24 - 48 hours
Subjective/Interval History
-
Date of Service: August 04, 2024
Objective Data
-
Labs:
Laboratory Results
08/04/24
03:20
WBC 8.0
Hgb 12.3
Hct 35.2 L
Plt Count 161
APTT 78.3 H
Vital Signs:
Vital Signs
Temp Pulse Resp BP Pulse Ox
97.4 F 56 16 109/65 99
08/04/24 11:08 08/04/24 13:38 08/04/24 13:38 08/04/24 13:38 08/04/24 13:38
I&O
08/03/24 08/04/24 08/05/24
06:59 06:59 06:59
Intake Total 1200 / 1200 480 / 480
Output Total 1000 / 1000
Balance 200 / 200 480 / 480
Physical Exam
-
General: Well Developed and No Apparent Distress
HEENT: Normocephalic, Atraumatic and Moist Mucous Membranes
Respiratory: Clear to Auscultation
Cardiac: Regular Rhythm and S1/S2; Negative Murmur, Rub or Gallop
GI: Soft, Nontender, Nondistended and Normal Bowel Sounds; Negative Organomegaly
Rectal: Deferred by Provider
Musculoskeletal: No Clubbing, No Cyanosis and No Edema
Skin: Negative Rash
Neuro: Nonfocal/Grossly Intact
[2024-08-05] VITALS (12 sets, daily range): BP systolic 90–113; BP diastolic 60–85
--- NOTE | 2024-08-05 03:39 | PTCARENOTE ---
Received pt at change of shift. Spouse at bedside. Educated pt and spouse regarding home Lovenox use. Resting in bed with call jimenez in reach.
[2024-08-05 04:40] LABS: Hematocrit 34.5 % (37.0-47.0); Hemoglobin 12.2 g/dL (12.0-16.0); Mean Corp Hgb Conc. 35.4 g/dL (33.0-37.0); Mean Corpuscular Hgb 29.8 pg (27.0-31.0); Mean Corpuscular Volume 84.1 fL (81.0-99.0); Mean Platelet Volume 9.2 fL (7.4-10.4); Platelet Count 167 10^3/uL (130-400); Red Cell Dist. Width 12.6 % (11.5-14.5); White Blood Cell Count 7.5 10^3/uL (4.8-10.8)
[2024-08-05] MEDS: LOVENOX 60 MG SC ×2 (08:34→19:32)
--- NOTE | 2024-08-05 10:04 | PTCARENOTE ---
Assumed care of patient at beginning of this shift from previous RN. Patient asked if miralax was safe with ; confirmed with Dr Tate that miralax is safe with . Informed patient; she declined to take this morning. Patient had
blister pack of her own meds brought in, stating they are meds; she stated she takes one in the morning (white tablet) and the other 2 at dinner (clear and brown tablets). TT sent to Dr Tate who then ordered; blister pack sent to pharmacy
for verification and bar code.
Patient requested to speak with groundskeeping maintenance worker; TT sent to Dr Hua.
[2024-08-05] MEDS: NON-FORMULARY ITEM 1 TAB PO ×3 (10:09→17:21)
--- NOTE | 2024-08-05 13:55 | PTCARENOTE ---
Patient given order ok to come off telemetry to shower; currently telemetry removed for shower.
[2024-08-05 16:14] LABS: Urine Albumin 1+ (Neg - Trace); Urine Bilirubin Negative (Negative); Urine Character Clear (Clear); Urine Color Yellow; Urine Glucose Negative (Negative); Urine Ketone Negative (Negative); Urine Leukocyte Negative (Negative); Urine Nitrite Negative (Negative); Urine Occult Blood 1+ (Negative); Urine Urobilinogen Negative (Neg - 1+)
[2024-08-05 16:34] LABS: Urine Red Blood Cell 0-2 /HPF (0-2); Urine Squamous Cell >30 /LPF (Few)
[2024-08-05 16:35] LABS: Urine Bacteria Moderate (Negative); Urine White Cell 0-2 /HPF (0-5)
--- NOTE | 2024-08-05 17:46 | W.PN.HOSP.TC ---
Today's Communication/Plan
-
Discussed with the patient in detail and expressed understanding
Discussed with the
Assessment / Plan
Assessment / Plan
Physical exam:
General: Awake, alert and oriented x3, not in distress and holds appropriate conversation.
HEENT: No active discharge, ecchymosis or bruising, moist lips, tongue and mucous membrane.
Eyes: No discharge or red conjunctiva, no nystagmus, pupils are reactive and equal
Neck:Supple, no JVD no bruit no goiter.
Respiratory: Normal AP contour and diameter, normal chest wall movement, normal respiratory effort, no respiratory distress,
Lungs: Good air entry bilaterally, no wheezing or rhonchi, no rales or crackles
Heart: S1, S2 regular, normal rate, no added sound.
Gastrointestinal: Positive bowel sounds, soft, nontender, no guarding or rigidity or organomegaly
Musculoskeletal: , no chest wall abnormality or tenderness. All joints and extremities have good range of motion, no muscle tenderness or any joint swelling or tenderness.
Extremities: No pitting edema, good peripheral pulses, good range of motion
Skin: Warm and dry, no ulceration, normal color.
Neurological: Awake, alert and oriented x3, moves extremities, speech clear and comprehensive, good muscle tone,
Psychiatric: Mildly anxious, normal thought and judgment, normal affect,
Impression.
34 years old female 9 weeks gestation status post IVF on progesterone and estrogen, status post prolonged airway travel presented with acute onset of exertional dyspnea and palpitations.
Acute pulmonary embolism.
CT scan of the chest with multiple segmental and subsegmental vessel filling defects consistent with pulmonary emboli throughout all lobes of the lungs. There is a saddle embolus at the bifurcation of the pulmonary trunk.
9 weeks gestation
Status post IVF on progesterone/estrogen therapy.
Status post prolonged care with travel
Plan
Not on oxygen, never required oxygen
Likely secondary to hormonal therapy and recent and travel to [place]
Has been hemodynamically stable since presentation.
Has been stable respiratory status since admission with no requirement for supplemental oxygen
Echocardiogram with preserved biventricular function with no evidence of pulmonary hypertension or RV strain
Bilateral lower extremity Doppler negative
Currently no clinical indication for thrombolytic therapy.
Transition to weight-based Lovenox on 08/04. Oral anticoagulants including Coumadin and NOACs contraindicated in .
Patient will remains on anticoagulation prior to with plan to follow-up with pulmonology and FILM LIBRARY CLERK as outpatient
Increase activity
Lovenox teaching
Risks of bleeding explained to the patient advised about continue to monitor stool and urine for any bleeding of-need to come back to the hospital
Possible DC by tomorrow
Looks anxious and had multiple questions all answered in detail and she expressed understanding and overall feels better.
Anticipated Discharge: 24 - 48 hours
Subjective/Interval History
-
Date of Service: August 05, 2024
Seen and examined sitting on the chair, awake, alert and oriented x 3, denies shortness of breath or chest pain or palpitation or any bleeding event or change in stool or urine color, nail abdominal pain or diarrhea constipation no weakness or
numbness in extremities, on Lovenox therapeutic
Objective Data
-
Vital Signs:
Vital Signs
Temp Pulse Resp BP Pulse Ox
98.0 F 82 20 104/67 98
08/05/24 16:05 08/05/24 16:00 08/05/24 16:00 08/05/24 16:00 08/05/24 16:00
I&O
08/04/24 08/05/24 08/06/24
07:59 07:59 07:59
Intake Total 1200 / 1200 480 / 480
Output Total 1000 / 1000
Balance 200 / 200 480 / 480
Review of Systems
-
All other systems: Reviewed and negative
Data Reviewed
-
CT Scan: Image personally visualized and interpreted and Discussed with Patient
Medical Tests (Nuc Med, Echo etc): Report Reviewed by me and Discussed with Patient
Labs: Labs Reviewed by me and Discussed with Patient
--- NOTE | 2024-08-05 22:39 | PTCARENOTE ---
Received pt from aissatou RN. Pt AAOx3, pleasant &able to make needs known. Pt administered subQ lovenox injection with nurse supervision. No c/o SOB, lungs diminished. SaO2 98% on RA. Call jimenez and belongings within reach. Care ongoing.
[2024-08-06] VITALS (7 sets, daily range): BP systolic 95–130; BP diastolic 61–81
[2024-08-06 05:00] LABS: Hematocrit 34.7 % (37.0-47.0); Hemoglobin 12.3 g/dL (12.0-16.0); Mean Corp Hgb Conc. 35.4 g/dL (33.0-37.0); Mean Corpuscular Hgb 29.6 pg (27.0-31.0); Mean Corpuscular Volume 83.6 fL (81.0-99.0); Mean Platelet Volume 9.1 fL (7.4-10.4); Platelet Count 164 10^3/uL (130-400); Red Blood Cell Count 4.15 10^6/uL (4.20-5.40); Red Cell Dist. Width 12.5 % (11.5-14.5); White Blood Cell Count 6.8 10^3/uL (4.8-10.8)
[2024-08-06] MEDS: NON-FORMULARY ITEM 1 TAB PO (08:38)
[2024-08-06] MEDS: LOVENOX 60 MG SC (08:41)
--- NOTE | 2024-08-06 12:30 | W.DCSUMMARY ---
Discharge Summary
Discharge Data
Date of Admission: 08/02/24
Date of Discharge: 08/06/24
-
Pending Results: No
Hospital Course
Discharging Physician : Dr. Mer Tate
Disposition :
Primary care physician :
Principal Discharge diagnosis :
1. Pulmonary embolism including saddle pulmonary embolism, risk factors , getting estrogen/progesterone by her IVF clinic also frequent flying
2. 9-week
History of present illness:
This is a 34-year-old female who is 9 weeks on IVF with estrogen and progesterone presenting to the emergency department with acute episode of severe dyspnea on exertion.
Patient has been on hormone therapy for . She is now 9 weeks . She reported that she traveled to [place] on the and came back on 28 July. This was about a 4 to 5-hour flight on each leg. She had otherwise been in usual state
of health and arose this morning with some left calf soreness. Then this afternoon she reported having palpitations. She reported some mild blurriness in her vision in the right eye. 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
few feet resulted in severe dyspnea on exertion. 8 improved at rest but when she tried to move again she felt seriously dyspneic. She contacted our emergency communications officer who recommended that she go to the emergency department for evaluation. PMD also
recommended same so she came into the ED.
Patient denies chest pain. She denies any recent cough fevers or chills. She denies any recent COVID infection. She denies any family history of clotting disorders. She denies any smoking.
In the emergency department she was afebrile blood pressure was 116/90 with a pulse of 78 she was satting 98% on room air. D-dimer was elevated. Electrolytes BUN/creatinine were all normal. CBC was normal. She had a CT PE study which showed
bilateral emboli with saddle embolus, moderate clot burden, signs of mild right heart strain. She had a DVT study of the left lower extremity which was negative. Patient started on heparin drip.
Hospital Course :
So patient admitted for shortness of breath which worse with exertion without any chest pain, she was a 9-week with history of IVF requiring estrogen and progesterone also she is traveling frequently and the latest 1 was flying to [place] for
more than our direct line.
Workup in the ER basically showed elevated D-dimer followed by CT chest which showed saddle pulmonary embolism and. CAT scan showed mild right sprained but the patient had no chest pain and did not require any oxygenation and to maintain normal
saturation also her blood pressure were okay so TNK or tPA not administered,
Admitted in IMU with close monitoring and started on heparin drip immediately.
Shortness of breath were improving and did not develop any chest pain or any bleeding event, no fever or chills or cough or congestion.
Her lower extremity ultrasound was negative for DVT.
Because of NOAC and warfarin contraindicated in , therapeutic Lovenox were recommended, a dose is debbie be now 60 mg twice daily. Patient tolerating Lovenox for the last few days without any bleeding event or complication. Also she was
closely followed up by layout technician.
Patient doing well and stable for discharge and her symptoms resolved and was able to walk around.
In the multiple long conversation with the patient and her in detail about her condition with complications and risks for bleeding if any
Her hemoglobin remained stable. Also her doses of Lovenox may go higher pending her weight because of as discussed with the patient also need to follow-up with her RN VISITING and also hematology for close monitoring.
Admit having some smelly urine without any dysuria or burning or fever or leukocytosis a urinalysis showed bacteria without any leukocytosis or nitrite we will hold off treating it and defer to her RN VISITING if they wanted treated.
Patient stable for discharge home spoke to pharmacy they have 43 dose of the Lovenox for now which sent the prescription also patient's going condition on discharge: Awake, alert and oriented x3, answer question properly, able to make own decision
and take care of activities of daily living, speech clear and comprehensive, continent of the bowel and bladder, ambulate without music assistant, goes home where lives with the family independently. Be working from home. Recommendation for next couple
of weeks, the meantime need to be reevaluated by her RN VISITING and fortune teller and primary care and decided accordingly because of advised about decreasing flying for now. They have a trip in the beginning of September planning, advised about addressing
it with her RN VISITING, fortune teller and primary care prior to travel and also may need hypercoagulability workup will defer to her primary care and hematology as an outpatient.
Need regular check of her stool and urine or any kind of bleeding if any happened need to come back to the hospital as discussed with the patient also need regular checking of CBC. Advised about encourage oral hydration and continue her home
vitamins.
Discharge Instructions:
Diet No restrictions
Activity No restrictions
Additional Activity Avoid climbing ladders or getting on the roof
and take extra care while using sharp objects as
long as on blood thinner
Driving Restrictions As prior to admission
Bathing Restrictions None
Blood Work Your complete blood picture, checking hemoglobin
count regularly including 7 to 10 days from now
as well as electrolyte, liver and renal
function, will defer to primary care physician
to order and follow-up
Instructions:
Stand-Alone Forms:
Changes to Home Medications: No
Discharge Medications:
DC Medications w/original date entered in [employer]
enoxaparin 60 mg/0.6 mL subcutaneous syringe 60 mg (0.6 mL) SC Q12 #36.6 mL 08/06/24
Home Medication Changes
Pending Results: No
Additional Pending Results:
Physical exam:
General: Awake, alert and oriented x3, not in distress and holds appropriate conversation.
HEENT: No active discharge, ecchymosis or bruising, moist lips, tongue and mucous membrane.
Eyes: No discharge or red conjunctiva, no nystagmus, pupils are reactive and equal
Neck:Supple, no JVD no bruit no goiter.
Respiratory: Normal AP contour and diameter, normal chest wall movement, normal respiratory effort, no respiratory distress,
Lungs: Good air entry bilaterally, no wheezing or rhonchi, no rales or crackles
Heart: S1, S2 regular, normal rate, no added sound.
Gastrointestinal: Positive bowel sounds, soft, nontender, no guarding or rigidity or organomegaly
Musculoskeletal: , no chest wall abnormality or tenderness. All joints and extremities have good range of motion, no muscle tenderness or any joint swelling or tenderness.
Extremities: No pitting edema, good peripheral pulses, good range of motion
Skin: Warm and dry, no ulceration, normal color.
Neurological: Awake, alert and oriented x3, normal mentation, moves extremities freely and normal, speech clear and comprehensive, good muscle tone,
Psychiatric: Normal mood, normal thought and judgment, normal affect,
Condition on discharge: Awake, alert and oriented x3, answer question properly, able to make own decision and take care of activities of daily living, speech clear and comprehensive, continent of the bowel and bladder, ambulate without music assistant,
goes home where lives with the family independently.
Discharge Plan
-
Patient Disposition: Home (Routine Discharge)
Condition: Good
Diet: No restrictions
Activity: No restrictions
Additional Activity: Avoid climbing ladders or getting on the roof and take extra care while using sharp objects as long as on blood thinner
Driving Restrictions: As prior to admission
Bathing Restrictions: None
Blood Work: Your complete blood picture, checking hemoglobin count regularly including 7 to 10 days from now as well as electrolyte, liver and renal function, will defer to primary care physician to order and follow-up
Referrals:
Dereje Astudillo MD [Family Provider] -
Salazar Roach DO [Active] - in two weeks (He is a fortune teller, saddle pulmonary embolism in )
Tobi Reis MD [Consulting Staff] - in two weeks
(Salazar Roach
)
Additional Discharge Medication Instructions: Continue your home vitamin as instructed by RN VISITING
Prescriptions:
New
enoxaparin 60 mg/0.6 mL Syringe
60 mg SC Q12 Qty: 36.6 1RF
Discharge Orders:
Discharge Patient (As Directed); Ordered 08/06/24
Ordered By: Mer Tate
Discharge Date and Time
Discharge Date/Time: 08/06/24 14:25
Print Language: UGANDAN
--- NOTE | 2024-08-06 12:48 | CM ---
Patient with Hx 1 Para 0 with an EDC of 03/02/2025 here with Dx Acute pulmonary embolism. Room air. Per nursing 08/06; ambulatory in room.
Met with patient who was preparing for d/c. The patient says she feels ready to go home today. Her will provide transport home.
No CM d/c needs identified.
Plan home today.
--- NOTE | 2024-08-06 14:08 | PTCARENOTE ---
Patient discharged to home with education information for lovenox. She was able to self-inject during hospital without difficulty. Dr Tate confirmed that patient's pharmacy has supply of lovenox to fill Rx; patient also called as well. She left
with and preferred to ambulate.
== END 2024-08-06 14:25 | disposition home or self-care (01) | DRG 831 ==
LOC: IMU 22:48
PROVIDERS: Internal Medicine; Nurse Practitioner Family; Nurse Practitioner Gerontology; Registered Nurse; ADMITTING PHYSICIAN Internal Medicine; ATTENDING PHYSICIAN Internal Medicine; CONSULT PHYSICIAN Internal Medicine Critical Care Medicine; EMERGENCY PHYSICIAN Emergency Medicine; FAMILY PHYSICIAN Family Medicine
DX: O99.411 Diseases of the circulatory system complicating pregnancy, first trimester (principal); I26.92 Saddle embolus of pulmonary artery without acute cor pulmonale; O09.811 Supervision of pregnancy resulting from assisted reproductive technology, first trimester; O09.511 Supervision of elderly primigravida, first trimester; Z3A.09 9 weeks gestation of pregnancy; Z79.890 Hormone replacement therapy
CPT/HCPCS: 71275; 76801; 80053; 81003; 81015; 83036; 84484; 84703; 85025; 85027; 85379; 85730; 87086; 93306; 93971; 96365; 96366; 99291; Q9967